=== PATIENT | male | born 1955 | race Caucasian/White ===

== ENCOUNTER 2016-12-08 06:21 | Inpatient (IN) | payer OTHER ==
[2016-11-14 13:19] VITALS: BMI 25.0
--- NOTE | 2016-11-14 14:02 | PAT Medication Instructions ---
Service Date Nov 14, 2016. Current Home Medication List Atorvastatin (Lipitor), 10 MG PO HS Calcium/Vitamin D (Os-Rene 500 Plus D), 1 TAB PO QAM Cholecalciferol (Vitamin D3), 1 TAB PO QAM Citalopram Hydrobromide (Citalopram Hydrobromide), 1 TAB PO HS Fish Oil ([place]or[place]-3), 1 CAP PO BID Fluticasone Propionate (Nasal) (Flonase Allergy Relief), 2 SPRAY DARLIN UD PRN for HAYFEVER Glucosamine-Chondroitin (Osteo Bi-Flex Regular Str), 1 TAB PO BID Hydrochlorothiazide (Hydrochlorothiazide), 1 TAB PO QAM Hydrocodone/Acetaminophen 5MG/325MG ([place] 5MG/325MG), 0.5-1 TABLET PO Q4 PRN for Pain Metoprolol Tartrate (Lopressor) (Lopressor), 50 MG PO BID Montelukast Sodium (Montelukast Sodium), 1 TAB PO HS Neomycin/Polymyxin/Dexameth Oph (Maxitrol Oph), 4 DROP OTR BID Pantoprazole (Protonix), 40 MG PO QAM Ranitidine Hcl (Zantac), 300 MG PO HS Tamsulosin HCl (Tamsulosin HCl), 0.4 MG PO HS Medication Instructions For Your Scheduled Surgery - Hold the following medications 2 weeks prior to surgery: Glucosamine-Chondroitin (Osteo Bi-Flex Regular Str), 1 TAB PO BID Fish Oil (Lorain-3), 1 CAP PO BID - Hold the following medications the morning of surgery: Hydrochlorothiazide (Hydrochlorothiazide), 1 TAB PO QAM Calcium/Vitamin D (Os-Rene 500 Plus D), 1 TAB PO QAM Cholecalciferol (Vitamin D3), 1 TAB PO QAM - Take the following medications the morning of surgery with a sip of water: Pantoprazole (Protonix), 40 MG PO QAM Neomycin/Polymyxin/Dexameth Oph (Maxitrol Oph), 4 DROP OTR BID Hydrocodone/Acetaminophen 5MG/325MG ([place] 5MG/325MG), 0.5-1 TABLET PO Q4 PRN for Pain (okay to take up to 4 hours prior to surgery if needed) Metoprolol Tartrate (Lopressor) (Lopressor), 50 MG PO BID Fluticasone Propionate (Nasal) (Flonase Allergy Relief), 2 SPRAY DARLIN UD PRN for HAYFEVER (if needed) - Take the following medications as scheduled the night before surgery: Tamsulosin HCl (Tamsulosin HCl), 0.4 MG PO HS Ranitidine Hcl (Zantac), 300 MG PO HS Neomycin/Polymyxin/Dexameth Oph (Maxitrol Oph), 4 DROP OTR BID Montelukast Sodium (Montelukast Sodium), 1 TAB PO HS Hydrocodone/Acetaminophen 5MG/325MG ([place] 5MG/325MG), 0.5-1 TABLET PO Q4 PRN for Pain (if needed) Metoprolol Tartrate (Lopressor) (Lopressor), 50 MG PO BID Fluticasone Propionate (Nasal) (Flonase Allergy Relief), 2 SPRAY DARLIN UD PRN for HAYFEVER (if needed) Citalopram Hydrobromide (Citalopram Hydrobromide), 1 TAB PO HS Atorvastatin (Lipitor), 10 MG PO HS If you have any questions please call us at [phone] or [phone] or [phone]
--- NOTE | 2016-11-14 14:39 | DIAGNOSTIC IMAGING REPORT ---
CHEST 2 VIEWS ROUTINE CLINICAL HISTORY: pat preoperative evaluation COMPARISON STUDY: No previous studies for comparison. FINDINGS: The bones soft tissues and hemidiaphragms are normal. The cardiomediastinal silhouette is normal. The lungs are clear. The pulmonary vasculature is normal. Small hiatal hernia IMPRESSION: Negative chest. The above report was generated using voice recognition software. It may contain grammatical, syntax or spelling errors. Electronically signed by: Krishna Beltran M.D. 11/14/2016 2:38 PM Dictated Date/Time: 11/14/2016 2:37 PM
[2016-11-14 14:42] LABS: URINE APPEARANCE CLEAR (CLEAR); URINE BILIRUBIN NEG (NEG); URINE COLOR YELLOW; URINE NITRITE NEG (NEG); URINE PH 5.5 (4.5-7.5); URINE SPECIFIC GRAVITY 1.024 (1.000-1.030); UROBILINOGEN NEG (NEG)
[2016-11-14 14:43] LABS: MANUAL MICROSCOPIC REQUIRED? NO; REVIEW REQ? NO
[2016-11-14 14:46] LABS: PROTHROMBIN TIME (PATIENT) 10.7 SECONDS (9.0-12.0)
[~2016-12-08] VITALS: Ht 170.2 cm; Wt 73.5 kg
[2016-12-08] VITALS (8 sets, daily range): BP systolic 106–132; BP diastolic 66–81; PULSE 70–81; TEMP 36.4–36.9; O2SAT 92–96; Ht 170.2 cm; Wt 73.5 kg
[~2016-12-08 06:21] MED LIST: ACETAMINOPHEN 500 MG TAB PO SCH; ATOR10TA88 PO; CALC500C70 PO; CEFAZOLIN 2000 MG/60 ML D5W 60 ML IV SCH; CHOL1000 PO; CITA20TA4 PO; FAMOTIDINE 20 MG TAB PO SCH; FLM4 PO; FLUT0.15 NAE; GABAPENTIN 300 MG CAP PO SCH; GLUCTAB18 PO; HYDR-5688 PO; HYDR12.55 PO; LACTATED RINGER'S 1000ML 1,000 ML IV SCH; LACTATED RINGER'S 1000ML 500 ML IV ONE; LACTATED RINGER'S 1000ML IV SCH; METO50TA16 PO; MONT1TAB5 PO; NEOM0.1S10 OTR; OMEG10007 PO; PANT40TA PO; RANI300T2 PO; ROPIVACAINE 5MG/ML 30 ML 150 MG, BUPIVACAINE/EPINEPHR 0.5% MPF 30 ML, KETOROLAC TROMETH... INFIL SCH
--- NOTE | 2016-12-08 06:34 | History and Physical ---
History & Physical Date Dec 08, 2016. Chief Complaint Osteoarthritis Left Hip History of Present Illness The patient is a 61 year old male with complaints of chronic left hip pain Past Medical/Surgical History hypertension, hyperlipidemia, GERD Additional History Hepatic Disease: No Endocrine Disorder: No Kidney Disease: No Hypertension: Yes Heart Disease: No Bleeding Tendencies: No Infectious Diseases: No Allergies Coded Allergies: Pregabalin (Verified Allergy, Unknown, "MAKES ME GOOFY", 11/14/16) Valproic Acid (Verified Allergy, Unknown, NAUSEA, VOMITING, 11/14/16) Home Medications Scheduled Atorvastatin (Lipitor), 10 MG PO HS Calcium/Vitamin D (Os-Rene 500 Plus D), 1 TAB PO QAM Cholecalciferol (Vitamin D3), 1 TAB PO QAM Citalopram Hydrobromide (Citalopram Hydrobromide), 1 TAB PO HS Fish Oil ([place]-3), 1 CAP PO BID Glucosamine-Chondroitin (Osteo Bi-Flex Regular Str), 1 TAB PO BID Hydrochlorothiazide (Hydrochlorothiazide), 1 TAB PO QAM Metoprolol Tartrate (Lopressor) (Lopressor), 50 MG PO BID Montelukast Sodium (Montelukast Sodium), 1 TAB PO HS Neomycin/Polymyxin/Dexameth Oph (Maxitrol Oph), 4 DROP OTR BID Pantoprazole (Protonix), 40 MG PO QAM Ranitidine Hcl (Zantac), 300 MG PO HS Tamsulosin HCl (Tamsulosin HCl), 0.4 MG PO HS Scheduled PRN Fluticasone Propionate (Nasal) (Flonase Allergy Relief), 2 SPRAY DARLIN UD PRN for HAYFEVER Hydrocodone/Acetaminophen 5MG/325MG ([place] 5MG/325MG), 0.5-1 TABLET PO Q4 PRN for Pain Physical Examination Skin: warm/dry, no rash Eyes: normal inspection, EOMI, sclerae normal ENT: normal ENT inspection, pharynx normal Head: normocephalic, atraumatic Neck: supple, no adenopathy, trachea midline Respiratory/Chest: lungs clear, normal breath sounds, no respiratory distress Cardiovascular: regular rate, rhythm, no edema, no murmur Abdomen / GI: normal bowel sounds, non tender Back: normal inspection Extremities: normal inspection, normal range of motion Neurologic/Psych: no motor/sensory deficits, alert, normal reflexes, oriented x 3 Addiitonal Comments: antalgic gait, pain with forced internal rotation of left hip Diagnosis Osteoarthritis Left Hip ASA Classification: ASA Class II Plan of Treatment Left Total Hip Arthroplasty
[2016-12-08] MEDS ORDERED: BUPIVACAINE 0.5 % 5 MG/1 ML PF 10ML VIAL ONE (07:35)
[2016-12-08] MEDS ORDERED: MIDAZOLAM HCL 1 MG/ML 2ML VIAL ONE (08:22)
[2016-12-08] MEDS ORDERED: FENTANYL CITRATE INJ 50 MCG/1 ML 2 ML VIAL ONE (08:22)
[2016-12-08] MEDS ORDERED: FENTANYL CITRATE INJ 50 MCG/1 ML 2 ML VIAL IV PRN (08:45)
[2016-12-08] MEDS ORDERED: EpHEDrine SULFATE INJ 50 MG/ML AMP IV PRN (08:45)
[2016-12-08] MEDS ORDERED: ONDANSETRON INJ 2 MG/ML 2 ML VIAL IV PRN ×2 (08:45→12:00)
[2016-12-08] MEDS ORDERED: ATROPINE SULFATE 0.1 MG/ML 5ML SYR IV PRN (08:45)
[2016-12-08] MEDS ORDERED: PROPOFOL IV EMULSION 10 MG/ML 20 ML VIAL IV ONE (09:09)
[2016-12-08] MEDS ORDERED: LIDOCAINE HCL 2% 2 ML VIAL (20MG/ML) ONE (09:09)
[2016-12-08] MEDS ORDERED: ONDANSETRON INJ 2 MG/ML 2 ML VIAL ONE (09:09)
[2016-12-08] MEDS: TRANEXAMIC ACID INJ 1,000 MG in SODIUM CHLORIDE 0.9% 100ML 100 ML IV SCH ×2 (09:19→13:25)
[2016-12-08] MEDS ORDERED: BACITRACIN 50000 UNIT VIAL ONE (09:41)
[2016-12-08] MEDS ORDERED: ORTHO JOINT ANESTHETIC ONE (09:41)
[2016-12-08] MEDS ORDERED: EpHEDrine SULFATE INJ 50 MG/ML AMP ONE (10:41)
[2016-12-08] MEDS ORDERED: NEOSTIGMINE METHYLSULFATE 5 MG/5 ML SYR ONE (10:41)
[2016-12-08] MEDS ORDERED: GLYCOPYRROLATE INJ 0.2 MG/ML VIAL ONE (10:41)
[2016-12-08] MEDS ORDERED: PHENYLEPHRINE 100MCG/ML 5ML SYR ONE (10:41)
[2016-12-08] MEDS ORDERED: ROCURONIUM BROMIDE 10 MG/ML 5 ML VIAL ONE (10:41)
--- NOTE | 2016-12-08 11:53 | [facility] Post Operative Brief Note ---
Immediate Operative Summary Operative Date Dec 08, 2016. Pre-Operative Diagnosis Left Hip Osteoarthritis Post-Operative Diagnosis Left Hip Osteoarthritis Procedure(s) Performed Left Anterior Total Hip Arthroplasty Uncemented Surgeon Dr Surendra Marquez Routing Machine Operator Surgeon(s) Diego Pruitt PA-C Estimated Blood Loss 300cc Findings as above Specimens As per Surgeon A. Femoral Head Left Complication(s) None Disposition Recovery Room / PACU
--- NOTE | 2016-12-08 11:56 | DIAGNOSTIC IMAGING REPORT ---
LEFT HIP UNILATERAL 1 VIEW CLINICAL HISTORY: LT TOTAL ANTERIOR joint replacement COMPARISON: None. DISCUSSION: Total left hip replacement. Good contact between prosthetic and underlying bone. Expected soft tissue postoperative change IMPRESSION: Anatomic alignment status post total left hip replacement The above report was generated using voice recognition software. It may contain grammatical, syntax or spelling errors. Electronically signed by: Krishna Beltran M.D. 12/08/2016 11:55 AM Dictated Date/Time: 12/08/2016 11:54 AM
[2016-12-08] MEDS ORDERED: MoRPHine SULFATE 2 MG/ML CARP IV PRN (12:00)
[2016-12-08] MEDS ORDERED: SOD PHOSPHATE/SOD BIPHOSPHATE ENEMA 132 ML BTL PR PRN (12:00)
[2016-12-08] MEDS ORDERED: MAGNESIUM HYDROXIDE SUSP 30 ML UDC PO PRN (12:00)
[2016-12-08] MEDS ORDERED: FLUTICASONE PROPIONATE NA SPR 16 GM BTL NAE PRN (12:00)
[2016-12-08] MEDS ORDERED: SILVER SULFADIAZINE 1% CR 50 GM JAR EXT PRN (12:00)
[2016-12-08] MEDS ORDERED: METOCLOPRAMIDE HCL INJ 5 MG/ML 2 ML VIAL IV PRN (12:00)
[2016-12-08] MEDS ORDERED: BISACODYL 10 MG SUPP PR PRN (12:00)
--- NOTE | 2016-12-08 12:42 | DIAGNOSTIC IMAGING REPORT ---
LEFT PELVIS/UNILATERAL HIP 1 VIEW CLINICAL HISTORY: IN PACU - A/P PELVIS and LATERAL HIP INCLUDING ALL OF IMPLANT postoperative evaluation COMPARISON: None. DISCUSSION: Total left hip replacement in good position. Good contact between prosthetic and underlying bone. Surgical drains are in position. Expected soft tissue postoperative change. IMPRESSION: Total left hip replacement with good position The above report was generated using voice recognition software. It may contain grammatical, syntax or spelling errors. Electronically signed by: Krishna Beltran M.D. 12/08/2016 12:41 PM Dictated Date/Time: 12/08/2016 12:40 PM
--- NOTE | 2016-12-08 12:50 | Anesthesiology Progress Note ---
Anesthesia Post Op Note Date & Time Dec 08, 2016 at 12:50 Vital Signs Pain Intensity: 0 Vital Signs Past 12 Hours Date Time Temp Pulse Resp B/P (MAP) Pulse Ox O2 Delivery O2 Flow Rate FiO2 12/08/16 12:40 36.4 70 16 139/86 95 Nasal Cannula 2 12/08/16 12:30 68 16 133/87 99 Nasal Cannula 2 12/08/16 12:20 65 15 131/82 99 Oxymask 10 12/08/16 12:10 66 16 138/84 99 Oxymask 10 12/08/16 12:02 36 65 16 141/89 97 Oxymask 10 12/08/16 06:43 36.5 75 20 132/81 95 Room Air Notes Mental Status: alert / awake / arousable, participated in evaluation Pt Amnestic to Procedure: Yes Nausea / Vomiting: adequately controlled Pain: adequately controlled Airway Patency, RR, SpO2: stable & adequate BP & HR: stable & adequate Hydration State: stable & adequate Neuraxial Anesthesia: was administered, sensory block is resolving Anesthetic Complications: no major complications apparent
[2016-12-08] MEDS: SODIUM CHLORIDE 0.9% 1000ML 1,000 ML IV SCH ×2 (14:05→22:01)
[2016-12-08] MEDS ORDERED: [UNRECOGNIZED DRUG - CODE] OTR (15:04)
[2016-12-08] MEDS: KETOROLAC TROMETHAMINE 30 MG/ML VIAL IV. SCH ×2 (16:02→22:01)
[2016-12-08] MEDS: CEFAZOLIN IV 1,000 MG in DEXTROSE 5% 50ML 50 ML IV SCH (17:48)
[2016-12-08] MEDS: METOPROLOL TARTRATE 50 MG TAB PO SCH (20:44)
[2016-12-08] MEDS: MONTELUKAST SOD 10 MG TAB PO SCH (20:44)
[2016-12-08] MEDS: TAMSULOSIN HCL 0.4 MG CAP PO SCH (20:45)
[2016-12-08] MEDS: CITALOPRAM 20 MG TAB PO SCH (20:45)
[2016-12-08] MEDS: RANITIDINE HCL 150 MG TAB PO SCH (20:45)
[2016-12-08] MEDS: ASPIRIN 325 MG ECTAB PO SCH (20:45)
[2016-12-08] MEDS: DOCUSATE SODIUM 100 MG CAP PO SCH (20:45)
[2016-12-08] MEDS: SENNA 8.6 MG TAB PO SCH (20:45)
[2016-12-08] MEDS: ATORVASTATIN 10 MG TAB PO SCH (20:45)
[2016-12-08] MEDS: CLOTRIMAZOLE 1% OTR SCH (20:46)
[2016-12-08] MEDS ORDERED: DEXAMETH OP OPB SCH (21:00)
[2016-12-08] MEDS ORDERED: POLYMYX OPB SCH (21:00)
[2016-12-08] MEDS ORDERED: NEOMYCIN OPB SCH (21:00)
[2016-12-09] VITALS (7 sets, daily range): BP systolic 122–133; BP diastolic 68–76; PULSE 70–81; TEMP 36.5–37.1; O2SAT 93–97
--- NOTE | 2016-12-09 02:04 | OPERATIVE REPORT ---
DATE OF OPERATION: 12/08/2016 PREOPERATIVE DIAGNOSIS: Primary osteoarthritis of the left hip. POSTOPERATIVE DIAGNOSIS: Same. PROCEDURE: Left total hip arthroplasty. SURGEON: Dr. Surendra Marquez. GANG TAILER: Diego Pruitt PA-C, whose assistance was necessary for retraction. ANESTHESIA: General with a spinal anesthetic (the spinal anesthetic was insufficient when we made an incision, so he was put under general anesthetic). COMPLICATIONS: None. CONDITION: Stable to PACU. IMPLANTS USED: I used a Biomet Taperloc total hip arthroplasty system with a size 11 pressfit Taperloc stem, a size 54 G7 pressfit cup, an E1 poly liner, and a size 40, 0 neck ceramic head. INDICATIONS: Jace is a pleasant 61-year-old male who presented to my office with chronic left hip pain. X-rays and clinical examination were diagnostic for primary osteoarthritis of the left hip. After failing conservative treatment, he elected to undergo a left total hip arthroplasty. DESCRIPTION OF PROCEDURE: On 12/08/2016, he arrived at [facility] for the above procedure. He was seen in the preoperative holding area and the operative extremity was identified and signed. He was given a preoperative antibiotic, taken back to the operating room, laid on table in supine position and given a spinal anesthetic. [facility] Left hip was then prepped and draped in sterile fashion. Timeout was done, and the patient and operative extremity was properly identified. An anterior approach was used. Once the incision was made, the patient was obviously feeling it. Anesthesia then put him under a general anesthetic. The dissection continued down to the anterior hip capsule and the capsule was incised but not removed. The femoral head was exposed. The femoral neck was then resected and the head was removed. The acetabulum was then exposed. Time was spent doing a complete labral release but the capsule was left intact. Sequential reaming up to a size 53 reamer was done. Reaming was done directly under fluoroscopy to ensure appropriate version and tilt. A final 54 mm G7 Biomet cup was then impacted into place. A manhole cover was placed as well as a single 20 mm screw. The E1 poly liner was then snapped into place. The surrounding soft tissues were then injected with 100 mL of an orthopedic pain control cocktail. The proximal femur was then exposed. A canal finder was used, followed by sequential broaching up to a size 11 broach. Off that broach, a standard head and neck assembly was applied. The hip was then reduced and I was happy with the alignment under fluoroscopy. The hip was then dislocated and the final size 11 Taperloc stem was impacted into place. A size 40, 0 neck ceramic head was then impacted into place. The hip was then reduced. Final x-rays showed anatomic alignment, no evidence of fracture. The wound was then irrigated with 3 liters of normal saline solution with bacitracin. The capsule was then repaired with #1 Vicryl suture. A drain was placed. The fascia was then closed with #1 PDS suture. Skin was closed with 2-0 Vicryl, 0 Prolene suture and a Prineo dressing. He was then extubated, transferred to a litter and taken to the postanesthesia care unit in stable condition. He tolerated the procedure well. I attest to the content of the Intraoperative Record and any orders documented therein. Any exception s are noted below.
[2016-12-09] MEDS: CEFAZOLIN IV 1,000 MG in DEXTROSE 5% 50ML 50 ML IV SCH (02:06)
[2016-12-09] MEDS: KETOROLAC TROMETHAMINE 30 MG/ML VIAL IV. SCH ×4 (03:57→21:32)
[2016-12-09 06:06] LABS: COMPLETE YES; EOS % 0.6 %; HEMATOCRIT 36.6 % (42-52); IG% 0.2 %; LYMPH ABS # 1.47 K/uL (1.2-3.4); MEAN CELL VOLUME 88.8 fL (80-100); MEAN CORPUSCULAR HEMOGLOBIN 28.9 pg (25-34); MEAN CORPUSCULAR HGB CONC 32.5 g/dl (32-36); MEAN PLATELET VOLUME 10.4 fL (7.4-10.4); MONO % 7.3 %; NEUT % 76.9 %; PLATELET COUNT 208 K/uL (130-400); RED BLOOD COUNT 4.12 M/uL (4.7-6.1); WHITE BLOOD COUNT 9.78 K/uL (4.8-10.8)
[2016-12-09 06:46] LABS: CREATININE 0.88 mg/dl (0.60-1.40); POTASSIUM 3.7 mmol/L (3.5-5.1)
[2016-12-09] MEDS: MULTIVITAMIN TAB PO SCH (08:46)
[2016-12-09] MEDS: HYDROCHLOROTHIAZIDE 25 MG TAB PO SCH (08:46)
[2016-12-09] MEDS: CALCIUM 600MG + VIT D 400 IU TAB PO SCH (08:46)
[2016-12-09] MEDS: PANTOprazole SOD 40 MG TAB PO SCH (08:46)
[2016-12-09] MEDS: DOCUSATE SODIUM 100 MG CAP PO SCH ×2 (08:47→21:00)
[2016-12-09] MEDS: CHOLECALCIFEROL 1000 INTER.UNIT TAB PO SCH (08:47)
[2016-12-09] MEDS: ASPIRIN 325 MG ECTAB PO SCH ×2 (08:47→21:00)
[2016-12-09] MEDS: METOPROLOL TARTRATE 50 MG TAB PO SCH ×2 (08:47→21:03)
--- NOTE | 2016-12-09 08:47 | PROGRESS NOTE ---
DATE: 12/09/2016 DATE: 12/09/2016 CHIEF COMPLAINT: Status post left total hip arthroplasty postop day #1. PROGRESS: Jamaal was seen and examined at bedside today. Overall, he is doing very well. He has a little soreness in the hip but it is not too bad. He has already been up and ambulating. He has no complaints. PHYSICAL EXAMINATION: LEFT HIP: The dressing has a little bit of bloody drainage on it but not much. It is mostly around the drain hole site. The drain is to suction. He has active dorsiflexion and plantarflexion of his left ankle, active extension of his left quad and sensation is intact. LABORATORY DATA: He has an H&H of 11.9 and 36.6. His glucose is 97. His vital signs are all stable on room air. He is voiding on his own. X-rays postoperatively of the left hip show the prosthesis to be in anatomic alignment without any evidence of fracture, dislocation or loosening. IMPRESSION: Status post left total hip arthroplasty postop day #1. PLAN: At this point, he is doing very well and happy with his progress. Will continue [place] for pain control. He is on aspirin 325 mg twice a day for DVT prophylaxis. He will be seen by physical therapy today. Tomorrow morning the nursing staff can change the dressing, pull the drain and we will discharge him to home with home health.
[2016-12-09] MEDS: CLOTRIMAZOLE 1% OTR SCH ×2 (08:48→20:58)
[2016-12-09] MEDS: SODIUM CHLORIDE 0.9% 1000ML 1,000 ML IV SCH (08:52)
[2016-12-09] MEDS: ATORVASTATIN 10 MG TAB PO SCH (21:33)
[2016-12-09] MEDS: CITALOPRAM 20 MG TAB PO SCH (21:33)
[2016-12-09] MEDS: RANITIDINE HCL 150 MG TAB PO SCH (21:33)
[2016-12-09] MEDS: MONTELUKAST SOD 10 MG TAB PO SCH (21:33)
[2016-12-09] MEDS: SENNA 8.6 MG TAB PO SCH (21:33)
[2016-12-09] MEDS: TAMSULOSIN HCL 0.4 MG CAP PO SCH (21:34)
[2016-12-09] MEDS: HYDROCODONE/ACETAMOPHEN 5/325MG TAB PO PRN (23:23)
[2016-12-10] MEDS: KETOROLAC TROMETHAMINE 30 MG/ML VIAL IV. SCH ×2 (03:43→09:38)
[2016-12-10 06:18] VITALS: BP 136/80; PULSE 74; TEMP 36.7; O2SAT 92
[2016-12-10] MEDS: ASPIRIN 325 MG ECTAB PO SCH (07:37)
[2016-12-10] MEDS: CLOTRIMAZOLE 1% OTR SCH (07:37)
[2016-12-10] MEDS: HYDROCHLOROTHIAZIDE 25 MG TAB PO SCH (07:38)
[2016-12-10] MEDS: PANTOprazole SOD 40 MG TAB PO SCH (07:38)
[2016-12-10] MEDS: CHOLECALCIFEROL 1000 INTER.UNIT TAB PO SCH (07:38)
[2016-12-10] MEDS: CALCIUM 600MG + VIT D 400 IU TAB PO SCH (07:38)
[2016-12-10] MEDS: MULTIVITAMIN TAB PO SCH (07:38)
[2016-12-10] MEDS ORDERED: HYDR-5688 PO (07:46)
[2016-12-10] MEDS ORDERED: ASPEC325 PO (07:46)
--- NOTE | 2016-12-10 07:48 | Discharge Instructions ---
Discharge Instructions Date of Service Dec 10, 2016. Admission Reason for Admission: Left Hip Osteoarthritis Discharge Discharge Diagnosis / Problem: Left Total Hip Discharge Goals Goal(s): Decrease discomfort, Improve function Activity Recommendations Activity Limitations: as noted below . Instructions / Follow-Up Instructions / Follow-Up Activity and Therapy Recommendations: * If you are using [facility] then Physical Therapy will be provided until they feel you are ready to start Outpatient Physical Therapy. If you are not using a Home Health agency then Outpatient Physical Therapy should start about 3-5 days from your day of surgery. Therapy will last about 3-6 weeks * You were shown a series of exercises in the hospital. Do these exercises three times each day including the exercises you were shown in physical therapy. * Get up and walk several times each day.~ For the first four weeks, try not to stand or walk for more than one hour at a time. If you do stand or walk for more than one hour, you will not hurt anything, but your leg will likely swell.~ ~ * As you feel comfortable, you may change from the walker or crutches to a cane and~then to independent walking. Medications: * Narcotic You will likely be sent home from the hospital with a prescription for the narcotic pain medication that worked best throughout your stay. * Aspirin Most patients will be required to take Aspirin 325mg twice a day for 6 weeks after surgery. This is obtained [id number] and a prescription is not necessary. * Other medications may be prescribed for specific circumstances. If you have any questions, please call the office at . * Resume previous home medications unless otherwise instructed TEDs/Elastic Stockings: The white elastic stockings help limit swelling and prevent blood clots from forming in your legs. The more you wear them, the more they work. Wear them for six weeks. Dressing Care: You will likely have a Prineo dressing covering your incision. This looks like a glued on clear mesh dressing. Do not remove this dressing until you follow- up in my office in 2-3 weeks. Its pretty hard to peel it off. You may leave the Prineo dressing uncovered or cover it if it is draining a little bit. No further dressing care is required Showering: You may shower 3 days from the day of surgery. Leave the Prineo dressing intact and let the soapy shower water run over it. Do not scrub or soak the dressing or the incision. Things To Watch For: * Drainage from the incision site that occurs more than one week after your surgery. * Increased redness at the incision site. * Fever above 102 degrees Fahrenheit. * Unusual chest pain or shortness of breath. * Call [facility] at with any of the above problems Follow-Up Visit: Follow-up with Dr. Marquez 2-3 weeks after your day of surgery. An appointment was probably scheduled when you signed-up for surgery in the office. If you have any questions call Office Instructions: More detailed instructions as well as Frequently Asked Questions were provided in a folder by our office when you signed-up for surgery. Please review these instructions when you get home. If you have any further questions or concerns, please feel free to call the office at [phone] Current Hospital Diet Patient's current hospital diet: Regular Diet Discharge Diet Recommended Diet: Regular Diet Procedures Procedures Performed: Left Anterior Total Hip Arthroplasty Uncemented Pending Studies Studies pending at discharge: no Medical Emergencies . Who to Call and When: Medical Emergencies: If at any time you feel your situation is an emergency, please call [phone] immediately. . Non-Emergent Contact Non-Emergency issues call your: Surgeon Call Non-Emergent contact if: wound has increased drainage, wound has increased redness . "Provider Documentation" section prepared by Surendra Marquez. . VTE Core Measure Inpt VTE Proph given/why not?: Other Anticoagulation (Aspirin 325 twice a day for 6 weeks)
--- NOTE | 2016-12-10 09:14 | DISCHARGE SUMMARY ---
DISCHARGE DIAGNOSIS: Primary osteoarthritis of the left hip. PROCEDURE: Left total hip arthroplasty on 12/08/[address] Surendra Marquez. DISCHARGE INSTRUCTIONS: 1. Aspirin 325 mg twice a day for 6 weeks. 2. [place] 5/325 one tab every 4 hours as needed for pain. 3. Lipitor 10 mg at night. 4. Os-Rene one tab daily. 5. Vitamin D3 1000 units in the morning. 6. Celexa 20 mg at night. 7. Flonase 2 sprays each nostril as needed. 8. Hydrochlorothiazide 1 tab daily. 9. Lopressor 50 mg twice a day. 10. Singulair 10 mg at night. 11. Protonix 40 mg daily. 12. Zantac 300 mg at night. 13. Flomax 0.4 mg at night. 14. Follow up with Dr. Marquez in 2 weeks. 15. Weightbear as tolerated. 16. Call the office of Dr. Marquez with any questions or concerns. HOSPITAL COURSE: Jace is a pleasant 61-year-old male who presented to my office with complaints of chronic left hip pain. X-rays and clinical examination were diagnostic for osteoarthritis of the left hip. After failing conservative treatment, he elected to undergo a left total hip arthroplasty. On 12/08/2016, he arrived at [facility] and underwent an anterior left hip replacement without complications. Postoperatively, he was started on aspirin 325 mg twice a day and discharged to general orthopedic floor. His hospital course was uneventful. On postop day #1, his H&H was stable at 11.9 and 36.6. His vital signs were all stable. He worked well with physical therapy and his pain was controlled. On postop day #2, the dressing was changed, the drain was pulled, he continued to work well with physical therapy. 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 He was subsequently discharged to home with home health and the above instructions.
--- NOTE | 2016-12-10 09:26 | PROGRESS NOTE ---
DATE: 12/10/2016 CHIEF COMPLAINT: Status post left total hip arthroplasty postop day #2. PROGRESS: Jace was seen and examined at bedside today. Overall, he is doing very well. He worked well yesterday with physical therapy. His pain is controlled, he has no complaints. PHYSICAL EXAMINATION: LEFT LEG: The dressing has been changed. The drain has been pulled. The incision is clean and dry without drainage. He has active dorsiflexion and plantarflexion of his left ankle and sensation is intact throughout. IMPRESSION: Status post left total hip arthroplasty postop day #2. PLAN: At this point, he is doing very well and happy with his progress. He will be seen by physical therapy again this morning and then discharged to home on oral pain medications.
[2016-12-10] MEDS: METOPROLOL TARTRATE 50 MG TAB PO SCH (09:37)
[2016-12-10] MEDS: DOCUSATE SODIUM 100 MG CAP PO SCH (09:37)
[2016-12-10 10:09] VITALS: BP 136/80; PULSE 74; TEMP 36.7; O2SAT 92
[2016-12-10] MEDS: HYDROCODONE/ACETAMOPHEN 5/325MG TAB PO PRN (10:53)
== END 2016-12-10 12:00 | disposition home health service (06) | DRG 470 ==
LOC: C.ACU 06:21 → C.3E 07:00 → ENRESERV 12:35
PROVIDERS: ADMIT Orthopaedic Surgery; ATTEND Orthopaedic Surgery
PROC: 0SRB03A Replacement of Left Hip Joint with Ceramic Synthetic Substitute, Uncemented, Open Approach (ICD-10-PCS; principal; 2016-12-08 09:30)
DX: M16.12 Unilateral primary osteoarthritis, left hip (principal); I10 Essential (primary) hypertension; K21.9 Gastro-esophageal reflux disease without esophagitis; E78.5 Hyperlipidemia, unspecified; Z79.899 Other long term (current) drug therapy